=== PATIENT | female | born 1965 | race African-American/Black ===

== ENCOUNTER → 2021-02-08 01:17 | Outpatient (CLI) | payer BC, SELFPAY ==
[2021-02-08 18:55] LABS: SARS-CoV-2 RNA PCR Negative
== END ==
PROVIDERS: Visit Provider Obstetrics & Gynecology
DX: Z01.812 Encounter for preprocedural laboratory examination (principal); Z20.822 Contact with and (suspected) exposure to COVID-19
CPT/HCPCS: C9803; U0003; U0005

== ENCOUNTER 2021-02-08 08:44 | Emergency (ER) | payer BC, SELFPAY ==
[2021-02-08] VITALS (10 sets, daily range): BP systolic 128–135; BP diastolic 71–98; PULSE 68–97; RESP 16; TEMP 36.1; O2SAT 100
--- NOTE | ~2021-02-08 | CT_ITS ---
EXAMINATION: CT abdomen pelvis w con DATE: 02/08/2021 11:11 INDICATION: Kidney stone presenting with left flank pain TECHNIQUE: Computed tomography (CT) of the abdomen and pelvis was performed with 100 mL Omnipaque-350 intravenous contrast. Automated exposure control and iterative reconstruction technique were employe d. The dose-length product was 664.89 mGy-cm. COMPARISON: None FINDINGS: Minimal dependent atelectasis in the bilateral lower lobes. Heart size is normal. No pericardial or p leural effusion. Focal hepatic steatosis at the ligamentum teres. Gallbladder, spleen, pancreas and b ilateral adrenal glands are normal. Small region of cortical scarring at the upper pole of the right kidney. There is mild left hydroureteronephrosis extending to the mid to distal left ureter where it passes along side the normal-appearing left ovary with no evident obstructing stone or mass. Bladder is distended measuring 14.8 x 10.0 x 9.5 cm . The uterus is not identified and has likely been surgic ally resected. There are few scattered colonic diverticula without adjacent inflammatory change to interiano ggest diverticulitis. Small bowel and appendix are normal. No free intraperitoneal gas or fluid. No p athologically enlarged abdominal or pelvic lymphadenopathy. Anterolisthesis L4 on L5 with mild disc h eight loss and severe bilateral facet osteoarthritis. IMPRESSION: 1. Mild left hydroureteronephrosis with transition point at the junction of the mid to distal left ur eter where there is no evident obstructing stone or mass. This could be related to either ureteral st ricture/obstructing ureteral lesion or vesicoureteral reflux due to the prominently distended bladder . Could consider urogram for further evaluation, either by CT or retrograde. 2. Cortical scarring at the upper pole of the right kidney. Reviewed, dictated and finalized at location A. IMPRESSION: 1. Mild left hydroureteronephrosis with transition point at the junction of the mid to distal left ureter where there is no evident obstructing stone or mass. This could be related to either ureteral stricture/obstructing ureteral lesion or vesicoureteral reflux due to the prominently distended bladder. Could consi dia urogram for further evaluation, either by CT or retrograde. 2. Cortical scarring at the upper pole of the right kidney.
[2021-02-08 09:03] LABS: Basophils Percent Auto 0.4 % (0.2-1.2); Eosinophils Absolute Auto 0.1 K/mm3 (0-0.3); Eosinophils Percent Auto 1.2 % (0-4.4); Immature Granulocyte Absolute 0.01 K/mm3 (0.00-0.031); Immature Granulocyte Percent A 0.2 % (0-0.5); Lymphocytes Absolute Auto 1.78 K/mm3 (0.9-3.2); Lymphocytes Percent Auto 36.3 % (18.3-44.2); Mean Corpuscular HGB Conc 32.4 g/dl (32-36); Mean Corpuscular Volume 86.2 fl (80-100); Mean Platelet Volume 9.6 fl (7.4-10.4); Monocytes Absolute Auto 0.7 K/mm3 (0.1-0.6); Monocytes Percent Auto 14.5 % (2.6-8.5); Neutrophils Absolute Auto 2.3 K/mm3 (1.3-6.7); Neutrophils Percent Auto 47.4 % (45.5-73.1); Platelet Count Result 243 k/mm3 (150-375); Red Blood Count 4.29 M/mm3 (4.2-5.4); Red Cell Distribution Width 14.9 % (11.5-14.5); White Blood Count 4.9 K/mm3 (4.5-10.0)
[2021-02-08 09:13] LABS: Alanine Aminotransferase 29 U/L (4-35); Albumin Level 4.1 g/dL (3.5-5.1); Alkaline Phosphatase 69 U/L (38-126); Anion Gap 4 mmol/L (8-16); Aspartate Amino Transferase 29 U/L (14-36); Bilirubin,Total 0.2 mg/dL (0.2-1.3); Blood Urea Nitrogen 13 mg/dL (7-17); Calcium 9.6 mg/dL (8.4-10.2); Carbon Dioxide 29 mmol/L (22-30); Chloride 104 mmol/L (98-107); Estimated CRCL calculation 88 ml/min; Estimated Glomerular Filt Rate > 60; Glucose 101 mg/dL (65-105); Lipase 83 U/L (23-300); Potassium 3.8 mmol/L (3.4-5.0); Sodium 137 mmol/L (137-145)
[2021-02-08 09:47] LABS: Add Urine Microscopic? YES; Appearance Urine Clear (Clear); Bilirubin Urine Negative (Negative); Blood Urine 1+ (Negative); Color Urine Straw (Yellow); Glucose Urine UA Negative (Negative); Ketones Urine Negative (Negative); Leukocyte Esterase Ur Negative LEU/UL (Negative); Mucus Urine Rare /lpf; Nitrate Urine Negative (Negative); Protein Urine Negative (Negative); Specific Grav Ur 1.009 (1.001-1.035); Squamous Epithelial Cell Urine Rare /hpf (Few); Urobilinogen Urine Negative mg/dL (<2.0); WBC Urine 0-3 /hpf
--- NOTE | 2021-02-08 10:54 | ED.GENADULT ---
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 patient denies any issues with urination or bowel movements or URI symptoms or other complaints denies injury trauma or similar occurrence Related Data Home Medications Medication Instructions Recorded Confirmed amlodipine 10 mg PO DAILY 02/03/21 02/03/21 aspirin 81 mg PO DAILY 02/03/21 02/03/21 carvedilol 25 mg PO DAILY 02/03/21 02/03/21 cholecalciferol (vitamin D3) 125 mcg PO DAILY 02/03/21 02/03/21 [Vitamin D3] hydrochlorothiazide 25 mg PO DAILY 02/03/21 02/03/21 losartan 100 mg PO DAILY 02/03/21 02/03/21 Allergies Allergy/AdvReac Type Severity Reaction Status Date / Time No Known Allergies Allergy Verified 02/08/21 10:07 Review of Systems Review of Systems: All systems reviewed & are unremarkable except as noted in HPI and below PMFSH Past Medical History Medical History Hypertension Social History Social History Smoking status: Never smoker Alcohol intake: current Drinks per week: 7 Substance use: never Substance use type: does not use Spiritual care concerns: No Exam Narrative: Exam Narrative: GENERAL: Well-appearing, well-nourished, and in no acute distress. HEAD: Normocephalic, atraumatic. EYES: PERRLA and EOMI. ENT: Nares clear, no rhinorrhea or epistaxis. Mucous membranes moist. CHEST: Clear to auscultation. No respiratory distress. No wheezes rales or rhonchi HEART: Regular rate and rhythm. No murmur heard. Normal peripheral pulses. ABDOMEN: Soft, nontender, nondistended EXTREMITIES: Normal range of motion. No edema. SKIN: Warm, dry, no rash. NEURO: No focal deficits. Alert and oriented x3. Cranial nerves II through XII grossly intact PSYCH: Normal mood and affect. Course Course Emergency Course: Patient is in the room in no distress aware of case findings treatment plan and diagnosis ABCs and vital signs intact no high risk changes in the evaluation was referred to urology for her finding patient agrees with this plan and also given reasons to return Vital Signs Vital signs: Vital Signs Temperature 97.0 F L 02/08/21 08:57 Pulse Rate 68 02/08/21 08:57 Respiratory Rate 16 02/08/21 08:57 Blood Pressure 128/98 H 02/08/21 08:57 Pulse Oximetry 100 02/08/21 08:57 Temperature 97.0 F L 02/08/21 08:57 Pulse Rate 68 02/08/21 08:57 Respiratory Rate 16 02/08/21 08:57 Blood Pressure 129/79 02/08/21 11:01 Pulse Oximetry 100 02/08/21 11:02 Medical Decision Making [facility] Narrative Medical decision making narrative: Patient presented with flank pain that has been present now for 1 month will be referred to urology for further evaluation given their contact information afebrile nontoxic-appearing no distress Vital Signs Vital Signs: Vital Signs Temperature 97.0 F L 02/08/21 08:57 Pulse Rate 68 02/08/21 08:57 Respiratory Rate 16 02/08/21 08:57 Blood Pressure 128/98 H 02/08/21 08:57 Pulse Oximetry 100 02/08/21 08:57 Temperature 97.0 F L 02/08/21 08:57 Pulse Rate 68 02/08/21 08:57 Respiratory Rate 16 02/08/21 08:57 Blood Pressure 129/79 02/08/21 11:01 Pulse Oximetry 100 02/08/21 11:02 Lab Data Result diagrams: 02/08/21 08:54 02/08/21 08:54 Labs: Lab Results
== END 2021-02-08 12:19 | disposition home or self-care (01) ==
PROVIDERS: Emergency Provider Emergency Medicine; PCP Hospitalist
DX: R10.9 Unspecified abdominal pain (principal); Z79.82 Long term (current) use of aspirin; I10 Essential (primary) hypertension; N13.30 Unspecified hydronephrosis
CPT/HCPCS: 36415; 74177; 80053; 81001; 83690; 85025; 99284; Q9967

== ENCOUNTER 2021-02-09 10:24 | Outpatient (CLI) | payer BC, SELFPAY ==
--- NOTE | 2021-02-09 11:00 | ECG_ITS ---
Measurements Intervals [place] Rate: 62 P: 40 ND: 154 QRS: 6 QRSD: 104 T: 31 QT: 382 QTc: 388 Interpretive Statements SINUS RHYTHM DELAYED PRECORDIAL R/S TRANSITION NONSPECIFIC T-WAVE ABNORMALITY- ANTEROLAT/INF LEADS BORDERLINE ECG Electronically Signed On 02-09-2021 11:07:36 CDT by Dalton Mooney D.O.
== END 2021-02-09 10:25 | disposition home or self-care (01) ==
LOC: ANHSURGERY 10:26
PROVIDERS: PCP Hospitalist; Visit Provider Obstetrics & Gynecology
DX: Z01.818 Encounter for other preprocedural examination (principal); Z79.899 Other long term (current) drug therapy; I10 Essential (primary) hypertension
CPT/HCPCS: 93005

== ENCOUNTER 2021-02-11 05:56 | Day surgery (SDC) | payer BC, SELFPAY ==
[2021-02-03 15:59] VITALS: BMI 29.0
[2021-02-11] VITALS (10 sets, daily range): BP systolic 117–135; BP diastolic 67–82; PULSE 56–77; RESP 12–16; TEMP 36.3–36.7; O2SAT 100; BMI 29.6
--- NOTE | 2021-02-11 11:16 | P.HP_ITS ---
History of Present Illness History of Present Illness Consent: Risks, benefits, and alternatives have been discussed and questions answered. Patient agrees to proceed with procedure. Chief complaint: cystocele,stress incontinence Narrative: Tabitha Sena is a 55 year old female presented to the office with leaking urine with activities and feeling bulge in vagina in the last 6 months. Patient denies bleeding, pain, or constipation. Review of Systems Cardiovascular: Cardiovascular: Reports no additional cardiovascular complain ts Respiratory: Respiratory: Reports no additional respiratory complaints Gastrointestinal: Gastrointestinal: Reports no additional gastrointestinal complaints Genitourinary: Genitourinary: Reports no additional female genitourinary complaints Musculoskeletal: Musculoskeletal: Reports no additional musculoskeletal complaints PMFSH Past Medical History Medical History (Updated 02/11/21 @ 11:21 by Sandro Herron MD) GSI (genuine stress incontinence), female Hypertension Pelvic organ prolapse quantification stage 2 cystocele Surgical History Surgical History History of hysterectomy Social History Social History Smoking status: Never smoker Alcohol intake: current Drinks per week: 7 Substance use: never Substance use type: does not use Living arrangements: alone Spiritual care concerns: No Meds Home Medications and Allergies Home Medications Medication Instructions Recorded Confirmed Type amlodipine 10 mg PO DAILY 02/03/21 02/11/21 History aspirin 81 mg PO DAILY 02/03/21 02/11/21 History carvedilol 25 mg PO DAILY 02/03/21 02/11/21 History cholecalciferol (vitamin D3) 125 mcg PO DAILY 02/03/21 02/11/21 History [Vitamin D3] hydrochlorothiazide 25 mg PO DAILY 02/03/21 02/11/21 History losartan 100 mg PO DAILY 02/03/21 02/11/21 History Allergies Allergy/AdvReac Type Severity Reaction Status Date / Time No Known Allergies Allergy Verified 02/11/21 11:12 Exam Const: General: healthy appearing Nutritional Appearance: well nourished Orientation/consciousness: patient oriented x3 Resp: Effort & Inspection: normal respiratory effort Auscultation: clear to auscultation bilaterally Cardio: Rate: regular rate Rhythm: regular rhythm GI: Inspection: normal to inspection : Speculum Exam - Cervix: Cervix absent Bimanual exam- vagina & uterus: uterus absent Other: + 2 cytocele noted on exam Assessment and Plan Assessment and plan (1) GSI (genuine stress incontinence), female: Code(s): N39.3 - Stress incontinence (female) (male) Status: Acute Assessment and Plan: Patient scheduled for transobturator taping with cystoscopy and Anterior repair. . Risk and benefits reiewed with patient in detail. (2) Pelvic organ prolapse quantification stage 2 cystocele: Code(s): N81.10 - Cystocele, unspecified Status: Acute
--- NOTE | 2021-02-11 11:36 | WPDHPUPDATE1 ---
History and Physical Update Update Date/Time: 02/11/21 11:36 History and Physical has been reviewed, including an updated exam of the patient. There are NO changes in the patient's condition. Risks, benefits, and alternatives have been discussed and questions answered. Patient agrees to proceed with procedure.
[2021-02-11] MEDS: ACETAMINOPHEN 500 MG TABLET 1000 MG PO (11:39)
--- NOTE | 2021-02-11 11:48 | WPDANESEPPF ---
Anes - Initial Pre Proc Eval Procedure: Operation Date: 02/11/21 12:45 Proposed Procedures p Anterior Repair, - Sandro Herron MD s Trans Obturator Taping - Sandro Herron MD Date/Time: 02/11/21 11:48 Surgeon: Sandro Herron MD Pre Op Diagnosis: cystocele,stress incontinence Patient Data Age: 55 Gender: F Height: 1.7 m Weight: 85.9 kg Allergies Allergy/AdvReac Type Severity Reaction Status Date / Time No Known Allergies Allergy Verified 02/11/21 11:12 Home Medications Medication Instructions Recorded Confirmed Type amlodipine 10 mg PO DAILY 02/03/21 02/11/21 History aspirin 81 mg PO DAILY 02/03/21 02/11/21 History carvedilol 25 mg PO DAILY 02/03/21 02/11/21 History cholecalciferol (vitamin D3) 125 mcg PO DAILY 02/03/21 02/11/21 History [Vitamin D3] hydrochlorothiazide 25 mg PO DAILY 02/03/21 02/11/21 History losartan 100 mg PO DAILY 02/03/21 02/11/21 History Patient hx anesthesia problems: none Family hx anesthesia problems: none PMFSH Past Medical History Medical History (Updated 02/11/21 @ 11:21 by Sandro Herron MD) GSI (genuine stress incontinence), female Hypertension Pelvic organ prolapse quantification stage 2 cystocele Surgical History Surgical History History of hysterectomy Social History Social History (Updated 02/11/21 @ 11:59 by Luis Noble DO) Smoking status: Never smoker Alcohol intake: current Alcohol use details: 1-2 drinks daily Substance use: never Substance use type: does not use Living arrangements: alone Spiritual care concerns: No Anes - Eval Final PreProcedure Day of Procedure 02/11/21 11:48 Patient weight: overweight Heart: regular rate and rhythm Lungs: clear to auscultation and normal air movement Airway: Mallampati scale class II Neurological: alert and oriented Last oral intake: >/= 8 hours ASA classification: III Emergent: no Anesthetic plan: proceed Anesthesia type and monitoring: general LMA and standard monitoring Informed Consent: The patient's anesthetic plan and its attendant risks and benefits were discussed with the patient/family/POA. Questions were solicited and answers provided to the satisfaction of the patient/family/POA.
[2021-02-11] MEDS: LACTATED RINGERS 1,000 ML 30 ML IV CONT ×2 (12:00→14:08)
[2021-02-11] MEDS: KETOROLAC 15 MG/ML VIAL (*BKC) IV PUSH (12:04)
[2021-02-11] MEDS: ceFAZolin 2 GM/D5W 50 ML 2 GM/50 ML BAG IVPB (12:24)
[2021-02-11] MEDS: LIDO 1%/EPINEPHRINE 1:100,000 50 ML VIAL 10 ML INFILTRATE (12:55)
--- NOTE | 2021-02-11 15:31 | PM.PROC ---
Procedure Note - Detailed Date of procedure: 02/11/21 Pre-op diagnosis: cystocele,stress incontinence Post-op diagnosis: same Procedure performed: Anterior repair with cystocele, Transobturator taping with cystoscopy Description of procedure: Patient was taken to the operating room and placed in a dorsal lithotomy position. The patient was prepared and draped in a normal sterile fashion. Biggs catheter was placed into the bladder and the bladder was drained for 100cc. A solution of 1% lidocaine with epinephrine was in the trade on the anterior vaginal mucosa midline a small incision was made and the vaginal mucosa at the vaginal vault. Then the Metzenbaum scissors were then used to the rectum because of the thick cystocele and cut the vaginal mucosa in the midline the cut edges were held and splayed laterally with a series of Allis clamps. The bladder was dissected away along the lateral edges with the combination of short and blunt dissection exposing the vesicle vaginal space a series of 2 Ethibond suture interrupted were then placed sequentially along the lateral poles of the vesicle vaginal space and brought together to tuck the bladder back while simultaneously bringing the lateral vaginal tissue is to get a the excess vaginal mucosa was then trimmed and the vaginal Gyne was then closed with a running lock of 2 0 Vicryl suture. attention was then turned to the bladder sling and which 2 Allis clamps were placed along the anterior vaginal wall beginning 1cm below the urethra and 3cm apart vertically a 2cm incision was made between Allis clamps on anterior vaginal mucosa in the periurethral tissue was dissected with the Metzenbaum scissors and blunt dissection to the level of the pubic bone on either side the midline. The obturator foramen on the right portions of the vagina well palpated bilaterally and injected with 1% lidocaine with epinephrine. And marked with a sterile marker. Stab incision was made in both areas. The obturator device hook was then introduced through the outer obturator foramen through the membrane entering alongside the bladder and urethra pushing the bladder and urethra out of the way and exiting through the vagina. The same procedure occurred on the left side. Cystoscope was performed with the 70 degree scope and the bladder dome was noted the posterior portion of the bladder with no visual suture noted. the obturator devices were manipulated and no areas of punctation were noted in the bladder cruz bilaterally. And there were bilateral ureteral jets noted with an intact urethra. The cystoscope was removed. The vaginal taping was attached to the obturator removed and pulled through under proper tension with spacing with Lee scissors. the vaginal mucosa was then closed with 2 0 Vicryl suture in a running locked fashion. The stab wound incisions were covered with surgical glue. The vagina was packed Anesthesia: GLMA Surgeon: Sandro Herron MD Estimated blood loss (mL): 150 Urine output (mL): 200 Drains: Yes Packing: Yes Pathology: none sent
[2021-02-11] MEDS: hydroCHLOROthiazide 25 MG TABLET PO (16:25)
[2021-02-11] MEDS: LOSARTAN POTASSIUM 100 MG TABLET PO (16:26)
[2021-02-11] MEDS: IBUPROFEN 600 MG TABLET PO (19:36)
[2021-02-11] MEDS: HYDROcodone/acetaminophen (*CRX) 10-325 MG TABLET 1 TAB PO (23:27)
[2021-02-12] MEDS: HYDROcodone/acetaminophen (*CRX) 5-325 MG TABLET 1 TAB PO (03:27)
[2021-02-12 03:35] VITALS: BP 110/69; PULSE 61; RESP 16; TEMP 36.6; O2SAT 99
[2021-02-12 07:35] VITALS: BP 113/73; PULSE 58; RESP 18; TEMP 36.1
[2021-02-12] MEDS: LOSARTAN POTASSIUM 100 MG TABLET PO (09:28)
[2021-02-12] MEDS: hydroCHLOROthiazide 25 MG TABLET PO (09:28)
[2021-02-12] MEDS: IBUPROFEN 600 MG TABLET PO (09:29)
[2021-02-12] MEDS: amLODIPine BESYLATE 5 MG TABLET 10 MG PO (09:29)
[2021-02-12 09:30] VITALS: PULSE 60
[2021-02-12] MEDS: carvediloL 25 MG TABLET PO (09:30)
[2021-02-12] MEDS: CHOLECALCIFEROL 1,000 UNITS TABLET 5000 UNITS PO (09:31)
--- NOTE | 2021-02-12 10:08 | WPDANESPN ---
Anes - Prog Note Post-Op Date/Time: 02/12/21 10:08 Cardiovascular status: normal Respiratory status: normal Airway patency: baseline Mental status: baseline Post-Op hydration status: normal Vital Signs: Last Vital Signs Temp 36.1 C L 02/12/21 07:35 Pulse 60 02/12/21 09:30 Resp 18 02/12/21 07:35 BP 113/73 02/12/21 07:35 Pulse Ox 99 02/12/21 03:35 Pain Score (VAS): 10/10 I/O: Intake & Output 02/11/21 02/12/21 02/12/21 23:59 07:59 15:59 Intake Total 2000 300 1000 Output Total 3100 1300 1000 Balance -1100 -1000 0 Post-procedural complaints: none Patient Feedback: Patient satisfied with anesthetic care.
--- NOTE | 2021-02-12 10:54 | PM.GYNPNOP ---
TICKET SCHEDULER - A/P Postoperative Procedures: Procedures Operation Date: 02/11/21 12:45 Actual Procedure Side Surgeon p Anterior Repair, Sandro Herron MD s Trans Obturator Taping Sandro Herron MD Postoperative day: 1 Postoperative status: doing well Postoperative plan: routine post-op care, discharge and other (minimal pain will give Marshall #12 as discussed with patient) Time Spent With Patient Time: Total time spent is greater than 50% in coordination of care (as documented) at patient's floor/unit and/or counseling patient: Time with patient: less than 15 minutes TICKET SCHEDULER- PN:Subj Post-Op Subjective Date/time seen: 02/12/21 10:54 Subjective: patient has no complaints, pain is well controlled and other (voided since cather out this am) Exam Narrative: Exam Narrative: abdomen, nt, nd TICKET SCHEDULER - PN: Obj Data Vital Signs Vital Signs: Vital Signs - 24 hr 02/11/21 11:45 02/11/21 14:08 02/11/21 14:15 Temperature 98.1 F 97.3 F L Pulse Rate 64 61 57 L Respiratory Rate 16 13 12 Blood Pressure 131/75 119/70 132/76 Pulse Oximetry 100 100 100 02/11/21 14:30 02/11/21 14:45 02/11/21 15:00 Temperature Pulse Rate 58 L 57 L 56 L Respiratory Rate 14 14 14 Blood Pressure 123/77 128/79 127/77 Pulse Oximetry 100 100 100 02/11/21 15:10 02/11/21 15:30 02/11/21 20:00 Temperature 97.5 F L 97.9 F Pulse Rate 58 L 58 L 77 Respiratory Rate 15 16 16 Blood Pressure 125/75 134/82 117/67 Pulse Oximetry 100 100 100 02/11/21 23:30 02/12/21 03:35 02/12/21 07:35 Temperature 98.0 F 97.8 F 97.0 F L Pulse Rate 64 61 58 L Respiratory Rate 16 16 18 Blood Pressure 135/77 110/69 113/73 Pulse Oximetry 100 99 02/12/21 09:30 Temperature Pulse Rate 60 Respiratory Rate Blood Pressure Pulse Oximetry Intake/Output Intake/Output: Intake & Output 02/09/21 02/10/21 02/11/21 02/12/21 23:59 23:59 23:59 23:59 Intake Total 2350 1300 Output Total 1210 2300 Balance -1600 -1000 Meds/Results Medications: Active Medications Generic Name Dose Route Start Last Admin Trade Name Freq PRN Reason Stop Dose Admin Hydrocodone Bitart/Acetaminophen 1 tab 02/11/21 14:53 02/12/21 03:27 Hydrocodone/Acetaminophen (*Crx) 5-325 Mg Tablet PO 1 tab Q3H PRN Administration Pain Rated 5 or Less Hydrocodone Bitart/Acetaminophen 1 tab 02/11/21 14:53 02/11/21 23:27 Hydrocodone/Acetaminophen (*Crx) 10-325 Mg Tablet PO 1 tab Q3H PRN Administration Pain Rated 6 or Greater Amlodipine Besylate 10 mg 02/12/21 09:00 02/12/21 09:29 Amlodipine Besylate 5 Mg Tablet PO 10 mg DAILY MARK Administration Carvedilol 25 mg 02/12/21 09:00 02/12/21 09:30 Carvedilol 25 Mg Tablet PO 25 mg DAILY MARK Administration Hydrochlorothiazide 25 mg 02/12/21 09:00 02/12/21 09:28 Hydrochlorothiazide 25 Mg Tablet PO 25 mg DAILY MARK Administration Ibuprofen 600 mg 02/11/21 14:53 02/12/21 09:29 Ibuprofen 600 Mg Tablet PO 600 mg Q6H PRN Administration Cramping Ketorolac Tromethamine 30 mg 02/11/21 14:53 Ketorolac 30 Mg/Ml Vial (*Bkc) IV PUSH 02/16/21 14:54 Q6H PRN Pain Rated 4-6 Losartan Potassium 100 mg 02/11/21 16:00 02/12/21 09:28 Losartan Potassium 100 Mg Tablet PO 100 mg DAILY MARK Administration Morphine Sulfate 4 mg 02/11/21 14:53 Morphine Sulfate (*Crx) 4 Mg/Ml Inj IV PUSH Q4H PRN Severe breakthrough pain Naloxone HCl 0.1 mg 02/11/21 14:53 Naloxone Hcl 0.4 Mg/Ml Vial IV PUSH Q2M PRN Respiratory rate less than 10 Ondansetron HCl 4 mg 02/11/21 14:53 Ondansetron Inj 4 Mg/2 Ml Vial IV PUSH Q6H PRN Nausea And Vomiting Vitamin D 5,000 units 02/12/21 09:00 02/12/21 09:31 Cholecalciferol 1,000 Units Tablet PO 5,000 units DAILY MARK Administration
--- NOTE | 2021-02-12 10:56 | PM.DS ---
DS: Admitting Diagnosis Admitting Diagnosis Admitting Diagnosis: cystocele with GSI DS: Discharge Diagnosis Discharge Diagnosis (1) Pelvic organ prolapse quantification stage 2 cystocele: Code(s): N81.10 - Cystocele, unspecified Status: Acute (2) GSI (genuine stress incontinence), female: Code(s): N39.3 - Stress incontinence (female) (male) Status: Acute DS: Summary Hospital Course Hospital Course: voiding, ambulating, and tolerating diet pain minimal Status at Discharge Functional status at discharge: independent ambulation Overall status at discharge: patient is progressing back to baseline Time Spent with Patient Time attestation: Total time spent providing and/or coordinating discharge services: Discharge Plan Discharge Patient Disposition: Home, Self-Care Stand Alone Forms: General Discharge Instructions Discharge Medications: New hydrocodone-acetaminophen 5-325 mg Tablet 1 tablet PO .Q6 PRN (Reason: Pain Rated 5 Or Less) Qty: 12 RF: 0 hydrocodone-acetaminophen 5-325 mg tablet 1 tablet PO Q8H PRN (Reason: pain) Qty: 12 RF: 0 Continued carvedilol 25 mg tablet 25 mg PO DAILY RF: 0 amlodipine 10 mg tablet 10 mg PO DAILY RF: 0 aspirin 81 mg Tablet 81 mg PO DAILY RF: 0 hydrochlorothiazide 25 mg tablet 25 mg PO DAILY RF: 0 losartan 100 mg tablet 100 mg PO DAILY RF: 0 cholecalciferol (vitamin D3) [Vitamin D3] 125 mcg (5,000 unit) Tablet 125 mcg PO DAILY RF: 0
== END 2021-02-12 13:05 | disposition home or self-care (01) ==
LOC: ANHSURGERY 15:04 → ANHOB2 15:36
PROVIDERS: PCP Hospitalist; Visit Provider Obstetrics & Gynecology
PROC: (CPT 57260; principal; 2021-02-11 12:45)
PROC: (CPT 57240; 2021-02-11 12:45)
DX: N81.2 Incomplete uterovaginal prolapse (principal); N39.3 Stress incontinence (female) (male); I10 Essential (primary) hypertension
CPT/HCPCS: 57240; 57288; 99199; A9270; C1771; J0690; J1100; J1885; J2250; J2405; J2704; J3010; J7120

== ENCOUNTER 2022-05-15 15:38 | Emergency (ER) | payer BC, SELFPAY ==
--- NOTE | ~2022-05-15 | XR_ITS ---
EXAMINATION: XR chest 2V 05/15/2022 16:55 INDICATION: Chest pain and shortness of breath PROCEDURE: 2 view chest COMPARISON: No prior studies for comparison. FINDINGS: The lungs are clear. The cardiomediastinal silhouette is within normal limits. There are no pleural effusions. There is no pneumothorax suspected. IMPRESSION: 1: NO ACUTE CARDIOPULMONARY DISEASE. Reviewed, dictated and finalized at location B.
--- NOTE | 2022-05-15 15:42 | ECG_ITS ---
Measurements Intervals [place] Rate: 57 P: 8 [place]: 157 QRS: -1 QRSD: 98 T: 7 QT: 394 QTc: 385 Interpretive Statements SINUS BRADYCARDIA NONSPECIFIC T-WAVE ABNORMALITY ABNORMAL ECG COMPARED TO ECG 02/09/2021 10:38:17 SINUS BRADYCARDIA NOW PRESENT T-WAVE ABNORMALITY NOW PRESENT Electronically Signed On 05-16-2022 8:45:43 CDT by Rambo Moore M.D.
[2022-05-15 15:43] VITALS: BP 139/86; PULSE 61; RESP 18; TEMP 36.4; O2SAT 99
[2022-05-15 16:04] LABS: Basophils Percent Auto 0.4 % (0.2-1.2); Eosinophils Absolute Auto 0.1 K/mm3 (0-0.3); Hematocrit 40.7 % (37.0-47.0); Hemoglobin 12.9 g/dL (12.0-15.0); Lymphocytes Absolute Auto 1.63 K/mm3 (0.9-3.2); Lymphocytes Percent Auto 33.5 % (18.3-44.2); Mean Corpuscular HGB Conc 31.7 g/dl (32-36); Mean Corpuscular Hemoglobin 27.6 pg (26-34); Mean Corpuscular Volume 87.2 fl (80-100); Mean Platelet Volume 10.3 fl (7.4-10.4); Monocytes Absolute Auto 0.6 K/mm3 (0.1-0.6); Monocytes Percent Auto 11.9 % (2.6-8.5); Neutrophils Absolute Auto 2.6 K/mm3 (1.3-6.7); Neutrophils Percent Auto 53.2 % (45.5-73.1); Platelet Count Result 265 k/mm3 (150-375); Red Blood Count 4.67 M/mm3 (4.2-5.4); Red Cell Distribution Width 14.9 % (11.5-14.5); White Blood Count 4.9 K/mm3 (4.5-10.0)
[2022-05-15 16:18] LABS: Alanine Aminotransferase 34 U/L (6-35); Albumin Level 4.7 g/dL (3.5-5.1); Alkaline Phosphatase 79 U/L (38-126); Anion Gap 8 mmol/L (8-16); Aspartate Amino Transferase 31 U/L (14-36); Bilirubin,Total 0.4 mg/dL (0.2-1.3); Blood Urea Nitrogen 14 mg/dL (7-17); Calcium 9.8 mg/dL (8.4-10.2); Carbon Dioxide 28 mmol/L (22-30); Chloride 101 mmol/L (98-107); Estimated Glomerular Filt Rate > 60; Glucose 107 mg/dL (65-110); Lipase 96 U/L (23-300); Potassium 3.9 mmol/L (3.4-5.0); Sodium 137 mmol/L (137-145)
[2022-05-15 16:28] LABS: INR 0.9; Prothrombin Time 12.1 Seconds (11.1-14.7)
[2022-05-15 16:29] LABS: Partial Thromboplastin Time 26.9 SECONDS (22.3-36.8)
[2022-05-15 16:30] LABS: Troponin I < 0.012 ng/mL (0.000-0.034)
[2022-05-15 16:42] LABS: Appearance Urine Clear (Clear); Bilirubin Urine Negative (Negative); Blood Urine Trace-lysed (Negative); Color Urine Yellow (Yellow); Glucose Urine UA Negative (Negative); Ketones Urine Negative (Negative); Leukocyte Esterase Ur Negative LEU/UL (Negative); Nitrate Urine Negative (Negative); Protein Urine Negative (Negative); Specific Grav Ur 1.015 (1.001-1.035); Urobilinogen Urine 0.2 mg/dL (<2.0); pH Urine 5.5 (5.0-9.0)
[2022-05-15 16:48] LABS: Bacteria Urine Trace /hpf; Mucus Urine Rare /lpf; RBC Urine 0-2 /hpf (0-2); Squamous Epithelial Cell Urine Occasional /hpf (Few); WBC Urine 0-3 /hpf
[2022-05-15 16:49] LABS: Add Urine Microscopic? YES
--- NOTE | 2022-05-15 16:57 | ED.CHESTPAIN ---
HPI - Chest Pain General Chief Complaint: Chest Pain Stated Complaint: chest pain Time Seen by Provider: 05/15/22 16:49 Source: RN notes reviewed History of Present Illness HPI narrative: Patient presents emergency department from home for chest pain. Patient states that chest pain is been constant for the past 2 days the pain is located over the midsternal lower chest and does not radiate described as burning in nature. States is worse when she takes a deep breath or coughs. She denies any fevers or chills abdominal pain nausea or vomiting or any other symptoms states she has not take anything for the pain. States that she does have a history of GERD and feels similar to prior Related Data Home Medications Medication Instructions Recorded Confirmed amlodipine 10 mg tablet 10 mg PO DAILY 02/03/21 02/11/21 aspirin 81 mg tablet 81 mg PO DAILY 02/03/21 02/11/21 carvedilol 25 mg tablet 25 mg PO DAILY 02/03/21 02/11/21 cholecalciferol (vitamin D3) 125 125 mcg PO DAILY 02/03/21 02/11/21 mcg (5,000 unit) tablet (Vitamin D3) hydrochlorothiazide 25 mg tablet 25 mg PO DAILY 02/03/21 02/11/21 losartan 100 mg tablet 100 mg PO DAILY 02/03/21 02/11/21 Allergies Allergy/AdvReac Type Severity Reaction Status Date / Time No Known Allergies Allergy Verified 02/11/21 11:12 Review of Systems Review of Systems: Gen.: Denies fevers or chills ENT: Denies congestion Respiratory: reports shortness of breath with chest pain CV: see HPI GI: Denies abdominal pain nausea, emesis or diarrhea Musculoskeletal: Denies back pain or muscle pain Neuro: Denies numbness, tingling, weakness or focal weakness Skin: Denies rash Except as documented, all other systems reviewed and negative [facility] Past Medical History Medical History GSI (genuine stress incontinence), female Hypertension Pelvic organ prolapse quantification stage 2 cystocele Surgical History Surgical History History of hysterectomy Social History Social History Smoking status: Never smoker Alcohol intake: current Alcohol use details: 1-2 drinks daily Substance use: never Substance use type: does not use Spiritual care concerns: No Exam Narrative: APPEARANCE: No acute distress, nontoxic, resting in bed EYES: EOMI HEENT: Normocephalic, atraumatic, OMM RESPIRATORY: No respiratory distress Clear to auscultation bilaterally with no rhonchi wheezing or rales. CARDIOVASCULAR: Regular rate and rhythm without murmurs rubs or gallops. ABDOMINAL: Soft, nontender, nondistended, no rebound or guarding MUSCULOSKELETAl: Moves all extremities. No clubbing, cyanosis or edema. NEURO: Awake and alert. Following commands, speech normal, no focal deficits SKIN:: Warm, dry. No rashes lesions or abrasions PSYCHIATRIC: Normal affect/mood, Course Course Emergency Course: Patient states chest pain is resolved following GI cocktail Discussed with patient results of workup and diagnosis. Discussed need for follow-up with primary care, proper use of medication, and reasons to return to the emergency department. Patient understands and agrees to current treatment plan Vital Signs Vital signs: Vital Signs Temperature 97.5 F L 05/15/22 15:43 Pulse Rate 61 05/15/22 15:43 Respiratory Rate 18 05/15/22 15:43 Blood Pressure 139/86 05/15/22 15:43 Pulse Oximetry 99 05/15/22 15:43 Oxygen Delivery Room Air 05/15/22 15:43 Temperature 98.7 F 05/15/22 17:04 Pulse Rate 58 L 05/15/22 19:09 Respiratory Rate 12 05/15/22 19:08 Blood Pressure 143/85 H 05/15/22 19:08 Pulse Oximetry 99 05/15/22 19:08 Oxygen Delivery Room Air 05/15/22 17:05 MDM - Chest Pain MDM Narrative Medical decision making narrative: Patient's EKGs and labs are without significant high risk changes. Cardiac risk fac
[2022-05-15 17:04] VITALS: BP 138/85; PULSE 60; RESP 18; TEMP 37.1; O2SAT 100
[2022-05-15 17:05] VITALS: O2SAT 100
[2022-05-15 17:34] VITALS: BP 137/79; PULSE 78; RESP 18; O2SAT 100
[2022-05-15 17:55] LABS: D Dimer 0.36 ug/mL (<0.48)
[2022-05-15 19:08] VITALS: BP 143/85; PULSE 58; RESP 12; O2SAT 99
[2022-05-15 19:09] VITALS: PULSE 58
[2022-05-15 19:17] LABS: Troponin I < 0.012 ng/mL (0.000-0.034)
[2022-05-15] MEDS: PANTOPRAZOLE 40 MG TABLET PO (19:28)
== END 2022-05-15 19:34 | disposition home or self-care (01) ==
PROVIDERS: Emergency Medicine; Emergency Provider Emergency Medicine; PCP Hospitalist
DX: R07.89 Other chest pain (principal); R00.1 Bradycardia, unspecified; I10 Essential (primary) hypertension
CPT/HCPCS: 36415; 71046; 80053; 81001; 81025; 83690; 84484; 85025; 85380; 85610; 85730; 93005; 99284; A9270